=== PATIENT | female | born 1990 | race Caucasian/White ===

== ENCOUNTER → 2016-10-13 | Outpatient (CLI) | payer BC, OTHER | LOC: CARD 12:48 | PROVIDERS: ATTEND Internal Medicine Interventional Cardiology | DX: I34.1 Nonrheumatic mitral (valve) prolapse (principal) | CPT/HCPCS: 93306 ==

== ENCOUNTER → 2019-04-03 | Outpatient (CLI) | payer BC | LOC: CARD 08:20 | PROVIDERS: ATTEND Internal Medicine Interventional Cardiology | DX: I34.0 Nonrheumatic mitral (valve) insufficiency (principal); I34.1 Nonrheumatic mitral (valve) prolapse | CPT/HCPCS: 93306 ==

== ENCOUNTER → 2020-10-17 | Outpatient (CLI) | payer OTHER ==
[~2020-10-17] MED LIST: HOLD METFORMIN - RECEIVED CONTRAST 20 ML VIAL IV SCH; IOHEXOL 350 MG/ML 100 ML (OMNIPAQUE 350) VIAL IV ONE; NS 100 ML (IVPB) BAG IV ONE
[2020-10-17 18:48] LABS: BASOPHILS # (AUTO) 0.1 10^3/uL (0.0-0.1); BASOPHILS % (AUTO) 1 % (0-10); EOSINOPHILS % (AUTO) 0 % (0-10); HEMATOCRIT 46 % (35-52); HEMOGLOBIN 15.3 g/dL (11.5-16.0); LYMPHOCYTES # (AUTO) 3.5 10^3/uL (1.0-4.0); LYMPHOCYTES % (AUTO) 35 % (12-44); MEAN CORPUSCULAR HEMOGLOBIN 32 pg (25-34); MEAN CORPUSCULAR HGB CONC 33 g/dL (32-36); MEAN CORPUSCULAR VOLUME 96 fL (80-99); MEAN PLATELET VOLUME 10.7 fL (9.0-12.2); MONOCYTES # (AUTO) 0.5 10^3/uL (0.0-1.0); MONOCYTES % (AUTO) 5 % (0-12); NEUTROPHILS % (AUTO) 59 % (42-75); PLATELET COUNT 221 10^3/uL (130-400); WHITE BLOOD COUNT 10.2 10^3/uL (4.3-11.0)
[2020-10-17 19:02] LABS: ALBUMIN 4.8 GM/DL (3.2-4.5); CHLORIDE 102 MMOL/L (98-107); POTASSIUM 3.7 MMOL/L (3.6-5.0); SODIUM 138 MMOL/L (135-145)
[2020-10-17 19:03] LABS: AMYLASE 66 U/L (25-125); CALCIUM 9.7 MG/DL (8.5-10.1)
[2020-10-17 19:04] LABS: GLUCOSE 108 MG/DL (70-105)
[2020-10-17 19:06] LABS: BILIRUBIN,TOTAL 0.6 MG/DL (0.1-1.0); CARBON DIOXIDE 22 MMOL/L (21-32)
[2020-10-17 19:08] LABS: ALKALINE PHOSPHATASE 51 U/L (40-136); CREATININE SERUM 0.78 MG/DL (0.60-1.30); GFR ESTIMATED > 60
[2020-10-17 19:09] LABS: BUN/CREATININE RATIO 13
[2020-10-17 19:11] LABS: ALANINE AMINOTRANSFERASE 16 U/L (0-55)
[2020-10-17 19:12] LABS: LIPASE 25 U/L (8-78)
--- NOTE | 2020-10-17 19:37 | Diagnostic Imaging Report ---
PROCEDURE: CT abdomen and pelvis with contrast. TECHNIQUE: All CT scans use one or more of the following dose optimizing techniques: automated exposure control, MA and/or KvP adjustment based on patient size and exam type or iterative reconstruction. INDICATION: Sharp right-sided abdominal pain today. FINDINGS: The lung bases are clear. Adrenal glands and kidneys appear normal. The uterus and adnexal structures appear unremarkable. No ascites is present. Urinary bladder is normal. No hernias are present. The colon appears unremarkable. The appendix is normal. Vascular structures are normal. Osseous structures appear normal. IMPRESSION: Negative CT scan of the abdomen and pelvis. The findings were called to the provider at 7:35 PM. Dictated by: Dictated on workstation # [id number]
== END ==
LOC: LAB 18:26
PROVIDERS: ATTEND Family Medicine
DX: R10.12 Left upper quadrant pain (principal)
CPT/HCPCS: 36415; 74177; 80053; 82150; 83690; 84703; 85025

== ENCOUNTER → 2021-08-07 | Outpatient (CLI) | payer OTHER | LOC: CARD 08:30 | PROVIDERS: ATTEND Internal Medicine Cardiovascular Disease | DX: I08.1 Rheumatic disorders of both mitral and tricuspid valves (principal); I10 Essential (primary) hypertension; I25.10 Atherosclerotic heart disease of native coronary artery without angina pectoris | CPT/HCPCS: 93306 ==

== ENCOUNTER 2022-06-29 07:58 | Outpatient (RCR) | payer OTHER | END 2022-06-30 | disposition home or self-care (01) | LOC: CR 07:58 | PROVIDERS: ATTEND Thoracic Surgery (Cardiothoracic Vascular Surgery) | DX: Z29.8 Encounter for other specified prophylactic measures (principal); I34.0 Nonrheumatic mitral (valve) insufficiency | CPT/HCPCS: 93798 ==

== ENCOUNTER 2022-07-06 11:13 | Outpatient (RCR) | payer OTHER | END 2022-07-31 | disposition home or self-care (01) | LOC: CR 11:13 | PROVIDERS: ATTEND Thoracic Surgery (Cardiothoracic Vascular Surgery) | DX: Z29.8 Encounter for other specified prophylactic measures (principal); I34.0 Nonrheumatic mitral (valve) insufficiency | CPT/HCPCS: 93798 ==

== ENCOUNTER → 2022-12-24 | Outpatient (CLI) | payer OTHER | LOC: CARD 10:59 | PROVIDERS: ATTEND Internal Medicine Cardiovascular Disease | DX: I10 Essential (primary) hypertension (principal); I25.10 Atherosclerotic heart disease of native coronary artery without angina pectoris; Z95.2 Presence of prosthetic heart valve | CPT/HCPCS: 93306 ==